=== PATIENT | female | born 1935 | race Caucasian/White ===

== ENCOUNTER 2019-03-21 18:37 | Emergency (ER) | payer MEDICARE, MEDICAID ==
[~2019-03-21] VITALS: Ht 162.6 cm; Wt 75.0 kg
[2019-03-21 18:45] VITALS: BP 105/32
== END 2019-03-21 22:05 | disposition home or self-care (01) ==
LOC: ED 21:20
DX: M47.9 Spondylosis, unspecified (principal); M54.2 Cervicalgia; I48.91 Unspecified atrial fibrillation
CPT/HCPCS: 72050; 81003; 93005; 96372; 99284; J1885; 96367

== ENCOUNTER 2019-12-18 19:25 | Emergency (ER) | payer MEDICARE, MEDICAID ==
[~2019-12-18] VITALS: Ht 160 cm; Wt 56.8 kg
[~2019-12-18 19:25] MED LIST: ASPI-650 PO; CEFD300C37 PO; METO25TA35 PO
--- NOTE | 2019-12-18 19:31 | NUR ---
PT JUAN TRACEE FROM HOME, WHERE SHE LIVES WITH HER SON. C/O ABD PAIN AND DIARRHEA FOR 6 MONTHS, WORSENING. STATES, "I NEVER HAVE A GOOD BM. I GO SEVERAL DAYS WITHOUT A BM, THEN I TAKE PEPTO BISMOL AND THEN I HAVE WATERY DIARRHEA. I MIGHT HAVE CROHN'S DISEASE. OR MAYBE I HAVE CANCER." IV WAS STARTED BY EMS. PT VERY ANXIOUS UPON ARRIVAL TO ED, STATES, "I HAVE SO MUCH ANXIETY. I JUST CAN'T TAKE IT!" EMS REPORTED PT HAD 2 DRINKS TODAY. VSS. ERP AT BS NOW.
[2019-12-18] MEDS ORDERED: LORazepam 2 MG/ML, 1ML ONE (19:43)
[2019-12-18 19:58] LABS: BASOPHILS # (AUTO) 0.04 x10^3/uL (0-0.1); BASOPHILS % (AUTO) 0 % (0-1); EOSINOPHILS # (AUTO) 0.19 x10^3/uL (0-0.4); EOSINOPHILS % (AUTO) 2 % (1-7); LYMPHOCYTES # (AUTO) 4.56 x10^3/uL (1-3.4); LYMPHOCYTES % (AUTO) 51 % (22-44); MD NO; MEAN CORPUSCULAR HEMOGLOBIN 31.7 pg (27.0-34.8); MEAN CORPUSCULAR HGB CONC 33.5 g/dL (32.4-35.8); MEAN CORPUSCULAR VOLUME 94.8 fL (80-100); MEAN PLATELET VOLUME 9.8 fL (7.4-10.4); MONOCYTES # (AUTO) 0.52 x10^3/uL (0.2-0.8); MONOCYTES % (AUTO) 6 % (2-9); NEUTROPHILS # (AUTO) 3.71 x10^3/uL (1.8-6.8); NEUTROPHILS % (AUTO) 41 % (42-75); PLATELET COUNT 215 x10^3/uL (130-400); RED BLOOD COUNT 4.55 x10^6/uL (3.82-5.3); RED CELL DISTRIBUTION WIDTH 14.5 % (9.6-15.2)
[2019-12-18] MEDS ORDERED: LORazepam 2 MG/ML, 1ML IVPush ONE (20:00)
[2019-12-18] MEDS ORDERED: SODIUM CHLORIDE FLUSH 10ML SYR IVF ONE (20:00)
[2019-12-18 20:07] LABS: ALANINE AMINOTRANSFERASE 16 U/L (12-78); ALBUMIN 3.2 g/dL (3.4-5.0); ANION GAP 9 mmol/L (5-15); CALCIUM 8.9 mg/dL (8.5-10.1); CHLORIDE 109 mmol/L (98-107)
[2019-12-18 20:13] LABS: ALKALINE PHOSPHATASE 116 U/L (45-117); BILIRUBIN,TOTAL 0.4 mg/dL (0.2-1.0); CREATININE 0.95 mg/dL (0.55-1.02); TOTAL PROTEIN 7.2 g/dL (6.4-8.2)
[2019-12-18 20:25] LABS: MICROSCOPIC NOT IND
[2019-12-18 20:30] VITALS: BP 106/52
[2019-12-18 20:34] LABS: CULTURE INDICATED? NO
--- NOTE | 2019-12-18 20:34 | NUR ---
PT'S SON STEPHY, , CALLED. STATES PT HASN'T FOLLOWED UP WITH HER GI APPT'S. ALSO STATES THAT PT GETS ANXIETY "WHEN SHE DRINKS". STATES HE WILL TRY TO ARRANGE A RIDE HOME FOR PT, BUT PT CAN TAKE CAB HOME IF NECESSARY.
--- NOTE | 2019-12-18 20:46 | NUR ---
ERP WAS IN FOR RECHECK. PT SLEEPING IN [facility] AT THIS TIME, AWAKENS EASILY.
--- NOTE | 2019-12-18 21:35 | NUR ---
SPOKE WITH PT'S SON STEPHY ON THE PHONE AGAIN, HE STATES HE COULDN'T ARRANGE A RIDE FOR PT, AND IT'S OKAY FOR PT TO TAKE A CAB HOME. PT'S ADDRESS VERIFIED WITH PT AND WITH SON. D/C INSTRUCTIONS & F/U APPT RV'WD WITH PT, SHE VERBALIZES UNDERSTANDING. ASSISTED PT OUT OF ED VIA WC AND CAB VOUCHER PROVIDED. CALLED SON TO LET HIM KNOW PT IS ON THE WAY, AND HE WILL MEET HER OUTSIDE.
== END 2019-12-18 21:39 | disposition home or self-care (01) ==
LOC: ED 21:15
DX: R10.84 Generalized abdominal pain (principal); R19.7 Diarrhea, unspecified; I48.91 Unspecified atrial fibrillation; Z87.891 Personal history of nicotine dependence
CPT/HCPCS: 36415; 80053; 81003; 83690; 85025; 96374; 99283; J2060